=== PATIENT | female | born 1990 | race Caucasian/White ===

== ENCOUNTER 2017-05-15 12:23 | Emergency (ER) | payer OTHER ==
[~2017-05-15] VITALS: Ht 149.9 cm; Wt 47.7 kg
[2017-05-15 12:27] VITALS: BP 127/106
[2017-05-15] MEDS ORDERED: BACL10TA PEG (12:36)
[2017-05-15] MEDS ORDERED: MIRALAX PEG (12:36)
[2017-05-15] MEDS ORDERED: LAMO25 PO (12:36)
[2017-05-15] MEDS ORDERED: LEVE250T55 PEG (12:36)
== END 2017-05-15 13:32 | disposition home or self-care (01) ==
LOC: EMS 12:24
DX: Z43.1 Encounter for attention to gastrostomy (principal)
CPT/HCPCS: 99281

== ENCOUNTER 2017-05-16 07:42 | Emergency (ER) | payer OTHER ==
[~2017-05-16] VITALS: Ht 149.9 cm; Wt 50.0 kg
[~2017-05-16 07:42] MED LIST: BACL10TA PEG; LAMO25 PO; LEVE250T55 PEG; MIRALAX PEG
[2017-05-16] MEDS ORDERED: DIATRIZOATE MEGLU/SOD 660/100 MG/ML 120 ML BOTTLE ONE (11:04)
[2017-05-16 14:50] VITALS: BP 124/75
== END 2017-05-16 15:25 | disposition home or self-care (01) ==
LOC: EMS 07:43
DX: K94.23 Gastrostomy malfunction (principal)
CPT/HCPCS: 36245; 49450; 99284; C1769; Q9963